=== PATIENT | female | born 1980 | race African-American/Black ===

== ENCOUNTER 2017-02-07 14:34 | Emergency (ER) | payer OTHER ==
[2017-02-07] MEDS ORDERED: predniSONE 20 MG TAB ONE (14:50)
[2017-02-07] MEDS ORDERED: Ibuprofen 800 MG TAB ONE (14:50)
[2017-02-07] MEDS ORDERED: cefTRIAXone\\ROCEPHIN 1 GM VIAL ONE (14:50)
[2017-02-07] MEDS ORDERED: Lidocaine 1% 20 ML MDV ONE (14:50)
[2017-02-07] MEDS ORDERED: Acetaminophen 500 MG TAB ONE (14:50)
== END 2017-02-07 15:16 | disposition home or self-care (01) ==
LOC: NAV ERS 14:34
DX: J02.9 Acute pharyngitis, unspecified (principal)
CPT/HCPCS: 96372; J0696; J2001; J7506

== ENCOUNTER 2017-04-12 23:53 | Emergency (ER) | payer OTHER ==
[2017-04-13] MEDS ORDERED: Acetaminophen 500 MG TAB ONE (00:08)
== END 2017-04-13 00:26 | disposition home or self-care (01) ==
LOC: NAV ERS 23:53
DX: H61.23 Impacted cerumen, bilateral (principal)
CPT/HCPCS: 99282

== ENCOUNTER 2018-07-02 15:43 | Emergency (ER) | payer OTHER ==
--- NOTE | 2018-07-02 16:44 | RAD ---
RADIOGRAPH CHEST 2 VIEWS: HISTORY: 38-year-old female with productive cough and chest congestion. FINDINGS: There is mild cardiomegaly. There is no evidence of air space density, pulmonary edema, or pneumothor ax. There is no pleural effusion. IMPRESSION: 1. No acute pulmonary findings. 2. Mild cardiomegaly without congestive heart failure. [email or web address] [] POS: FAITH
== END 2018-07-02 16:40 | disposition home or self-care (01) ==
LOC: NAV ERS 15:43
DX: J20.9 Acute bronchitis, unspecified (principal)
CPT/HCPCS: 71046

== ENCOUNTER 2019-07-25 17:33 | Emergency (ER) | payer SELFPAY ==
--- NOTE | 2019-07-25 18:14 | RAD ---
Chest 2 views HISTORY: Cough. Dyspnea. COMPARISON: 07/02/2018. FINDINGS: Cardiac silhouette is normal appearance. Pulmonary vasculature upper limits of normal. Medi astinum is midline. No confluent airspace consolidation, pneumothorax, or pleural fluid are apparent. IMPRESSION: No active cardiopulmonary abnormalities are demonstrated.
== END 2019-07-25 18:38 | disposition home or self-care (01) ==
LOC: NAV ERS 17:33
DX: J06.9 Acute upper respiratory infection, unspecified (principal); D50.9 Iron deficiency anemia, unspecified
CPT/HCPCS: 71046

== ENCOUNTER 2020-09-18 16:14 | Emergency (ER) | payer BC, MEDICAID ==
[2020-09-18] MEDS ORDERED: Boostrix 0.5 ML (Tdap) VIAL ONE (16:37)
== END 2020-09-18 17:01 | disposition home or self-care (01) ==
LOC: NAV ERS 16:14
DX: L02.411 Cutaneous abscess of right axilla (principal)
CPT/HCPCS: 87070; 87077; 87186; 87205; 90471; 90715

== ENCOUNTER 2021-05-09 07:53 | Emergency (ER) | payer BC, MEDICAID, SELFPAY ==
[2021-05-09] MEDS ORDERED: Acetaminophen 500 MG TAB ONE (09:04)
== END 2021-05-09 10:04 | disposition home or self-care (01) ==
LOC: NAV ERS 07:53
DX: B34.9 Viral infection, unspecified (principal); L02.411 Cutaneous abscess of right axilla; D50.9 Iron deficiency anemia, unspecified
CPT/HCPCS: 87081; 87430; 99284

== ENCOUNTER 2021-07-25 14:53 | Emergency (ER) | payer BC, SELFPAY ==
[2021-07-25] MEDS ORDERED: Acetaminophen 325 MG TAB ONE (15:40)
[2021-07-25 16:01] LABS: #Basophils 0.1 thou/uL (0.0-0.2); #Eosinphils 0.2 thou/uL (0.0-0.7); #Lymphocytes 2.5 thou/uL (1.20-3.40); #Monocytes 0.7 thou/uL (0.11-0.59); #Neutrophils 4.9 thou/uL (1.40-6.50); %Basophils 0.9 % (0.0-1.0); %Eosinophils 2.9 % (0.0-10.0); %Lymphocytes 29.3 % (21.0-51.0); %Monocytes 8.8 % (0.0-10.0); %Neutrophils 58.1 % (42.0-75.0); Hemoglobin 10.1 g/dL (12.0-16.0); Mean Corpuscular HGB CONC 31.1 g/dL (32.0-36.0); Mean Corpuscular Hemoglobin 28.8 pg (27.0-31.0); Mean Corpuscular Volume 92.7 fL (78.0-98.0); Mean Platelet Volume 5.7 fL (7.4-10.4); Platelet Count 419 thou/uL (130-400); RBC Distribution Width 13.4 % (11.5-14.5); Red Blood Cell (RBC) Count 3.51 mill/uL (4.20-5.40); White Blood Cell (WBC) Count 8.4 thou/uL (4.8-10.8)
[2021-07-25 16:19] LABS: ALT (SGPT) 13 U/L (8-55); AST (SGOT) 14 U/L (5-34); Albumin 3.6 g/dL (3.5-5.0); Alkaline Phosphatase 63 U/L (40-110); Anion Gap 12 mmol/L (10-20); BUN (Urea Nitrogen) 8 mg/dL (7.0-18.7); Bilirubin, Total 0.1 mg/dL (0.2-1.2); Calc. Creatinine Clearance 0 mL/min (70-130); Calcium 8.8 mg/dL (7.8-10.44); Carbon Dioxide 23 mmol/L (22-29); Chloride 106 mmol/L (98-107); Globulin 3.4 g/dL (2.4-3.5); Glucose 115 mg/dL (70-105); Potassium 3.6 mmol/L (3.5-5.1); Sodium 137 mmol/L (136-145)
== END 2021-07-25 17:13 | disposition home or self-care (01) ==
LOC: NAV ERS 14:53
DX: S86.811A Strain of other muscle(s) and tendon(s) at lower leg level, right leg, initial encounter (principal); D50.9 Iron deficiency anemia, unspecified; X58.XXXA Exposure to other specified factors, initial encounter
CPT/HCPCS: 80053; 85025; 85379; 99283

== ENCOUNTER 2024-03-23 16:46 | Emergency (ER) | payer BC, OTHER, SELFPAY ==
[2024-03-23] MEDS ORDERED: Ketorolac Tromethamine 60 MG/2 ML VIAL ONE (18:10)
[2024-03-23] MEDS ORDERED: Dexamethasone 4 mg/ml Vial ONE (18:10)
== END 2024-03-23 18:47 | disposition home or self-care (01) ==
LOC: NAV ERS 16:46
DX: J06.9 Acute upper respiratory infection, unspecified (principal); J20.9 Acute bronchitis, unspecified; J32.9 Chronic sinusitis, unspecified
CPT/HCPCS: 71046; 87081; 87400; 87426; 87430; 96372; J1100; J1885

== ENCOUNTER 2024-05-12 15:45 | Emergency (ER) | payer OTHER ==
[2024-05-12] MEDS ORDERED: Sulfameth/Trimethoprim DS 800-160mg TAB ONE (17:19)
== END 2024-05-12 18:06 | disposition home or self-care (01) ==
LOC: NAV ERS 15:45
DX: L03.317 Cellulitis of buttock (principal)
CPT/HCPCS: 99283